=== PATIENT | female | born 1985 | race Caucasian/White ===

== ENCOUNTER 2020-10-26 21:22 | Inpatient (IN) | payer OTHER, SELFPAY ==
[2020-10-26 22:00] VITALS: BP 126/84; PULSE 120
--- NOTE | 2020-10-26 22:00 | LDADM ---
This patient, Siva Membreno, was admitted to Labor/Delivery/Recovery 108 on 10/26/20 at 21:22. Plans for labor, pain management and were discussed with patient. Patient/family oriented to hospital policies and general routines including ID bracelet, bed and alarms, visiting hours, pain management, procedures, bathroom and other care routines, personal items, smoking policy, room service/diet and guest tray routines, security routines, and visiting hours. Patient/Family are encouraged to report perceived risks to care and to ask questions if they do not understand what they are told or what they should do. See OBIX for further documentation.
[2020-10-26 22:15] VITALS: BP 108/62; PULSE 103
[2020-10-26 22:30] VITALS: BP 113/76; PULSE 102
[2020-10-26] MEDS: AMPICILLIN 2 GM/NS 100 ML 2 GM/100 ML BAG IVPB (22:32)
[2020-10-26] MEDS: LACTATED RINGERS 1,000 ML 125 ML IV CONT (22:32)
[2020-10-26 22:38] LABS: Basophils Percent Auto 0.2 % (0.2-1.2); Eosinophils Percent Auto 0.3 % (0-4.4); Hematocrit 40.6 % (37.0-47.0); Hemoglobin 13.6 g/dL (12.0-15.0); Immature Granulocyte Absolute 0.08 K/mm3 (0.00-0.031); Immature Granulocyte Percent A 0.6 % (0-0.5); Lymphocytes Absolute Auto 2.59 K/mm3 (0.9-3.2); Lymphocytes Percent Auto 18.4 % (18.3-44.2); Mean Corpuscular HGB Conc 33.5 g/dl (32-36); Mean Corpuscular Hemoglobin 30.4 pg (26-34); Mean Corpuscular Volume 90.8 fl (80-100); Mean Platelet Volume 11.9 fl (7.4-10.4); Monocytes Absolute Auto 0.6 K/mm3 (0.1-0.6); Monocytes Percent Auto 3.9 % (2.6-8.5); Neutrophils Absolute Auto 10.8 K/mm3 (1.3-6.7); Neutrophils Percent Auto 76.6 % (45.5-73.1); Platelet Count Result 224 k/mm3 (150-375); Red Blood Count 4.47 M/mm3 (4.2-5.4); Red Cell Distribution Width 13.2 % (11.5-14.5); White Blood Count 14.1 K/mm3 (4.5-10.0)
[2020-10-26 22:41] LABS: Glucose Point of Care 171 mg/dl (65-105)
[2020-10-26 22:45] VITALS: BP 117/80; PULSE 117
[2020-10-26 23:00] VITALS: BMI 38.7
[2020-10-26] MEDS: INSULIN HUMAN REGULAR (*BKC) 100 UNITS/ML SUB-Q (23:17)
[2020-10-26 23:20] VITALS: BP 135/83; PULSE 113
[2020-10-26 23:30] VITALS: TEMP 36.5
[2020-10-27] VITALS (80 sets, daily range): BP systolic 88–138; BP diastolic 49–97; PULSE 68–125; RESP 13–22; TEMP 35.9–37.1; O2SAT 96–100
[2020-10-27] MEDS: INSULIN HUMAN REGULAR (*BKC) 100 UNITS in SODIUM CHLORIDE 0.9% IV 99 ML IV CONT (00:32)
[2020-10-27 00:44] LABS: Glucose Point of Care 121 mg/dl (65-105)
[2020-10-27 01:42] LABS: Glucose Point of Care 115 mg/dl (65-105)
[2020-10-27] MEDS: AMPICILLIN 1 GM/NS 50 ML 1 GM/50 ML BAG IVPB ×3 (02:32→11:02)
[2020-10-27] MEDS: OXYTOCIN 30 UNITS/NS 500 ML 30 UNITS/500 ML BAG 6 UNITS IV CONT (02:32)
[2020-10-27 02:43] LABS: Glucose Point of Care 87 mg/dl (65-105)
[2020-10-27 04:21] LABS: Glucose Point of Care 88 mg/dl (65-105)
[2020-10-27 04:54] LABS: Glucose Point of Care 91 mg/dl (65-105)
[2020-10-27] MEDS: fentaNYL CITRATE INJ (*CRX) 100 MCG/2 ML VIAL IV PUSH (05:24)
[2020-10-27 06:12] LABS: Glucose Point of Care 103 mg/dl (65-105)
--- NOTE | 2020-10-27 06:18 | WPDANESEPPF ---
Anes - Initial Pre Proc Eval Procedure: labor epidural Date/Time: 10/27/20 06:18 Surgeon: Casandra Arevalo MD Pre Op Diagnosis: labor pain Pre Op Diagnosis: SROM Patient Data Age: 34 Gender: F Height: 1.63 m Weight: 102.5 kg Last Vital Signs Temp 36.4 C L 10/27/20 06:17 Pulse 82 10/27/20 06:15 Resp 20 10/27/20 06:17 BP 112/67 10/27/20 06:15 Pulse Ox 100 10/27/20 06:14 Allergies Allergy/AdvReac Type Severity Reaction Status Date / Time No Known Allergies Allergy Verified 10/18/20 12:37 Home Medications Medication Instructions Recorded Confirmed Type aspirin [Aspirin Low Dose] 81 mg PO DAILY 10/18/20 10/18/20 History ergocalciferol (vitamin D2) 1,250 mcg PO WEEKLY 10/18/20 10/18/20 History [Vitamin D2] ferrous sulfate 325 mg PO DAILY 10/18/20 10/18/20 History insulin NPH and regular human 28 unit SUBCUT HS 10/18/20 10/18/20 History [Humulin 70/30 U-100 Insulin] prenat.vits,rich,qzr-iqzr-kopwr 1 tablet PO DAILY 10/18/20 10/18/20 History [ #2] sertraline 250 mg PO DAILY 10/18/20 10/18/20 History Laboratory Tests 10/26/20 10/26/20 10/26/20 22:25 22:25 22:25 WBC 14.1 K/mm3 H K/mm3 (4.5-10.0) RBC 4.47 M/mm3 M/mm3 (4.2-5.4) Hgb 13.6 g/dL g/dL (12.0-15.0) Hct 40.6 % % (37.0-47.0) MCV 90.8 fl fl (80-100) MCH 30.4 pg pg (26-34) MCHC 33.5 g/dl g/dl (32-36) RDW 13.2 % % (11.5-14.5) Plt Count 224 k/mm3 k/mm3 (150-375) MPV 11.9 fl H fl (7.4-10.4) Immature Gran % (Auto) 0.6 % H % (0-0.5) Neut % (Auto) 76.6 % H % (45.5-73.1) Lymph % (Auto) 18.4 % % (18.3-44.2) [place] % (Auto) 3.9 % % (2.6-8.5) Eos % (Auto) 0.3 % % (0-4.4) Baso % (Auto) 0.2 % % (0.2-1.2) Lymph # (Auto) 2.59 K/mm3 K/mm3 (0.9-3.2) [place] # (Auto) 0.6 K/mm3 K/mm3 (0.1-0.6) Eos # (Auto) 0.0 K/mm3 K/mm3 (0-0.3) Baso # (Auto) 0.0 K/mm3 K/mm3 (0.0-0.1) Abs Immat Gran (auto) 0.08 K/mm3 H K/mm3 (0.00-0.031) Absolute Neuts (auto) 10.8 K/mm3 H K/mm3 (1.3-6.7) Absolute Nucleated RBC 0.0 K/mm3 K/mm3 (0.0-0.012) Nucleated RBC % 0.0 % % (0.0-0.2) POC Capillary Glucose RPR Pending Blood Type O Positive Antibody Screen Negative 10/26/20 10/27/20 10/27/20 22:37 00:31 01:38 WBC RBC Hgb Hct MCV MCH MCHC RDW Plt Count MPV Immature Gran % (Auto) Neut % (Auto) Lymph % (Auto) [place] % (Auto) Eos % (Auto) Baso % (Auto) Lymph # (Auto) [place] # (Auto) Eos # (Auto) Baso # (Auto) Abs Immat Gran (auto) Absolute Neuts (auto) Absolute Nucleated RBC Nucleated RBC % POC Capillary Glucose 171 mg/dl H mg/dl 121 mg/dl H mg/dl 115 mg/dl H mg/dl (65-105) (65-105) (65-105) RPR Blood Type Antibody Screen 10/27/20 10/27/20 10/27/20 02:30 03:56 04:48 WBC RBC Hgb Hct MCV MCH MCHC RDW Plt Count MPV Immature Gran % (Auto) Neut % (Auto) Lymph % (Auto) [place] % (Auto) Eos % (Auto) Baso % (Auto) Lymph # (Auto) [place] # (Auto) Eos # (Auto) Baso # (Auto) Abs Immat Gran (auto) Absolute Neuts (auto) Absolute Nucleated RBC Nucleated RBC % POC Capillary Glucose 87 mg/dl mg/dl 88 mg/dl mg/dl 91 mg
[2020-10-27 07:13] LABS: Glucose Point of Care 109 mg/dl (65-105)
[2020-10-27 08:18] LABS: Glucose Point of Care 108 mg/dl (65-105)
[2020-10-27 09:12] LABS: Glucose Point of Care 120 mg/dl (65-105)
[2020-10-27 10:11] LABS: Glucose Point of Care 105 mg/dl (65-105)
[2020-10-27 11:19] LABS: Glucose Point of Care 111 mg/dl (65-105)
[2020-10-27 12:02] LABS: Glucose Point of Care 106 mg/dl (65-105)
--- NOTE | 2020-10-27 15:30 | PC.NURSE ---
Insulin gtt discontinued at this time.
--- NOTE | 2020-10-27 15:35 | P.PCNOB_ITS ---
OB - Delivery Note Procedure Delivery date: 10/27/20 Procedure: events: Labor < 37 Weeks, Gestational Diabetes and Labor Augmentation Delivery augmentation: pitocin Delivery monitor: external FHT and external uterine Route of delivery: Laceration Description: Perineal - 2nd Degree Delivery repair: vicryl Specimen: Yes Quantitative Blood Loss (ml): 774 Anesthesia type: Epidural Disposition: floor Complications: vaginal tear bleeding prior to delivery [place] Baby Date of : 10/27/20 Time of : 15:05 Weeks of gestation at delivery: 36 Infant gender: Male Weight (pounds): 7 Weight (ounces): 0 presentation: vertex position: Left Occiput Anterior Placenta delivery description: Spontaneous cord vessel description: 3 Vessels, Nuchal Cord, Loose and Clamped/Cut score one minute: 7 score five minutes: 9
[2020-10-27 15:41] LABS: Glucose Point of Care 102 mg/dl (65-105)
[2020-10-27 15:41] LABS: Glucose Point of Care 116 mg/dl (65-105)
[2020-10-27] MEDS: OXYTOCIN 30 UNITS/NS 500 ML 30 UNITS/500 ML BAG 125 UNITS IV CONT (15:45)
[2020-10-27] MEDS: IBUPROFEN 600 MG TABLET PO (18:23)
[2020-10-28] MEDS: IBUPROFEN 600 MG TABLET PO ×4 (00:23→20:20)
[2020-10-28 03:30] VITALS: BP 108/61; PULSE 87; RESP 14; TEMP 36.3; O2SAT 100
[2020-10-28 05:39] LABS: Hematocrit 31.6 % (37.0-47.0); Hemoglobin 10.2 g/dL (12.0-15.0)
[2020-10-28 07:00] VITALS: BP 101/62; PULSE 80; RESP 18; TEMP 36.6; O2SAT 97
[2020-10-28] MEDS: WITCH HAZEL 40 PADS 1 PAD TOPICAL (08:07)
[2020-10-28] MEDS: DOCUSATE SODIUM 100 MG CAPSULE PO ×2 (08:07→20:20)
[2020-10-28] MEDS: LANOLIN (LANSINOH) 7.5 GM CREAM 1 APPLIC TOPICAL (08:08)
[2020-10-28 09:29] LABS: Rapid Plasma Reagin Non-Reactive (NonReactive)
--- NOTE | 2020-10-28 09:45 | WPDANLDPN2 ---
Anes-Prog Note L&D Date/Time: 10/28/20 09:45 Comfortable throughout: labor and delivery Neuraxial method: epidural Epidural/Spinal procedure site: clean & non-tender Neuro status: Neuro function grossly intact. Cardiovascular status: normal Respiratory status: normal Airway patency: baseline Mental status: baseline Post-Op hydration status: normal Vital Signs: Last Vital Signs Temp 36.3 C L 10/28/20 03:30 Pulse 87 10/28/20 03:30 Resp 14 10/28/20 03:30 BP 108/61 10/28/20 03:30 Pulse Ox 100 10/28/20 03:30 Pain score (VAS): 0 I/O: Intake & Output 10/27/20 10/28/20 10/28/20 23:59 07:59 15:59 Output Total 190 Balance -190 Post-procedural complaints: none Patient feedback: Patient satisfied with anesthetic care.
--- NOTE | 2020-10-28 10:50 | PC.NURSE ---
Mother called out for assist with feeding reporting has been sleepy and difficult to latch and maintain. Discussed the early with needing to wake for each feeding, possible low tone, sleepiness while feeding. Infant is able to freely thrust tongue past gum ridge and flange both lips. Skin is intact on both nipples, no redness and bruising noted. Reviewed feeding cues, frequencies, duration of feedings, feeding elimination flow sheet, and signs of adequate intake. Demonstrated stimulation techniques to wake for feeding. Assisted with to breast. Reviewed positioning/alignment in cross cradle, holding breast in ?U? hold and guided asymmetrical latch on. Discussed rational for each. able to latch correctly within a few attempts. nursed eagerly with a burst of steady draws then quickly pausing and falling asleep. Suggested mother stimulate while feeding to increase stimulation, increase intake and to assist with maintaining deep latch. made one more short burst of suckling in 15 minutes attempt. Discussed feeding options at this time. Suggested mother initiate pumping to stimulate milk supply and offer any EBM to infant as part of supplement. Infant to be supplemented 20 mls of EBM/formula after each attempt in not effectively feeding. Parents are agreement of feeding plan.
--- NOTE | 2020-10-28 11:10 | PC.NURSE ---
Breast pump provided due to ineffective feeding. Instructions given on breast pump care and usage, pumping schedule, nipple care, and collection and storage of breast milk. Encouraged [id number], breast massage and manual expression to stimulate supply. Assessed patient for correct flange size, placement and draw. Patient verbalizes and demonstrates understanding of instructions.
[2020-10-28 12:05] VITALS: BP 118/65; PULSE 81; RESP 18; TEMP 36.5; O2SAT 100
--- NOTE | 2020-10-28 17:03 | PHAR ---
THE FOLLOWING HOME MEDS HAVE BEEN VERIFIED BY PHARMACY: --SERTRALINE 100 MG TABS--2 DIFFERENT LOOKING TABS IN PT'S BOTTLE BOTH IDENTIFIED SERTRALINE 100 MG. --METHYLPREDNISOLONE 4 MG DOSEPAK --DIPHENHYDRAMINE 25 MG TABS -- VITAMIN SOFTGEL--NOT ABLE TO BE IDENTIFIED DUE TO LACK OF UNIDENTIFIABLE MARKINGS
[2020-10-28 20:30] VITALS: BP 121/67; PULSE 98; RESP 18; TEMP 36.8; O2SAT 100
[2020-10-28] MEDS: methylPREDNISolone (MEDROL) DOSEPACK 4 MG TABLETS PO (21:40)
[2020-10-29] MEDS: IBUPROFEN 600 MG TABLET PO ×3 (02:26→16:22)
[2020-10-29 08:30] VITALS: BP 114/71; PULSE 72; RESP 16; TEMP 36.4; O2SAT 99
[2020-10-29] MEDS: DOCUSATE SODIUM 100 MG CAPSULE PO (09:02)
--- NOTE | 2020-10-29 11:00 | PC.NURSE ---
Mother is able to independently latch with appropriate positioning/alignment. She denies any nipple discomfort, is feeding as required and waking infant to feed if needed. Infant has had several effective feedings followed with supplementation in the past 24 hours, and is currently meeting outcomes for weight, output, jaundice and feeding frequencies. is more awake and eager to feed today. Mother continues to pump without difficulties or discomfort after all feedings due to ineffective feeding. Mother states she feels confident to continue current feeding plan at home. Discussed infant may want to increase supplementation, advised to increase to amount infant desires, with increased supplement infant may not want to feed for 4 hours. Mother will continue to pump on feeding schedule and will increase session to 20 minutes if pumping every 4 hours. Reviewed signs may be ready to decrease/discontinue supplementation. Advised not to discontinue supplement until ICP, follow up or LC has a pre/post weighted evaluation of feeding Reviewed transition to breast milk, signs of adequate intake, and engorgement/relief. Instructed to call ICP if intake/output less than required. Reviewed regular medications mother is taking. Information provided per Jamia. Reviewed community resources on the [facility] website and in the Mom/Baby guide. Information on outpatient services provided. Mother has no further questions at this time.
--- NOTE | 2020-10-29 12:02 | P.PNOB_ITS ---
OB - PN: Subj Subjective Date/time seen: 10/29/20 12:02 doing well no complaints OB - PN: Obj Data Labs CBC & Chem 7: 10/28/20 03:39 OB - PN A/P Assessment and Plan (1) (normal spontaneous vaginal delivery): Code(s): O80 - Encounter for full-term uncomplicated delivery Status: Acute Assessment and Plan: continue with pp care. Time Spent With Patient Time: Total time spent is greater than 50% in coordination of care (as kelli smith) at patient's floor/unit and/or counseling patient: Exam Narrative: ff below umbilicus
--- NOTE | 2020-10-29 19:20 | PC.NURSE ---
1600 Pt and her were given pt's and baby's discharge papers including feeding plan for baby, and asked to read through them. They stated they did read them; mother signed discharge papers in understanding.
[2020-10-30 10:38] VITALS: BP 121/73; PULSE 96; RESP 20; TEMP 36.5; O2SAT 100
--- NOTE | 2021-01-03 12:08 | PM.OBDSVD ---
DS: Admitting Diagnosis Discharge Date 10/29/20 Admitting Diagnosis labor rupture membranes OB - DS: Summary OB Procedures : None OB Procedures Intrapartum: Spontaneous Vag Delivery OB Procedures: : None Time Spent with Patient Time attestation: Total time spent providing and/or coordinating discharge services: DS: Data Data Completed and Pending Completed studies during hospitalization: Pending at discharge 10/27/20 15:10 Surgical [PTH] Routine Discharge Plan Discharge Attending physician on discharge: Ian Vazquez Consulting providers: Jose Zapata Discharging Clinician: Ian Vazquez Patient Disposition: Home, Self-Care Activity: may shower and may drive after 2 weeks Diet: regular Discharge Instructions: Education: Mom and Baby Guide Given to: Mother Follow-Up: Call your delivering provider's office for an appointment to be seen in: as directed by physician Mom and baby should come to the [facility] for the follow-up appointment. Appointment Date/Time: October 30, 2020 at 10:00 am What to expect at your follow-up visit: Blood Pressure Check Physical Assessment Call [phone] if you are unable to keep your appointment time. BREAST CARE: * Wear a snug supportive bra. * For engorgement discomfort: Breast Feeding: * Apply warm moist washcloths * Express milk as needed to relieve engorgement * Wear loose clothing Bottle Feeding: * May apply ice packs * For sore nipples: * Identify correct latch-on * Apply warm moist washcloths before and after nursing * Air dry nipples after nursing * May apply Lansinoh cream to nipples EPISIOTOMY/PERINEAL CARE: * Until bleeding stops, use your meghna bottle after urinating * Change your pad frequently throughout the day * You may take sitz baths several times a day (fill your bathtub with warm water and soak for 20 minutes.) Do NOT bathe in the water * No tub baths until seen by your physician - You may shower ACTIVITY: * Rest as much as possible. * Do not exercise or lift anything heavier than your baby (such as laundry or other children.) * Avoid stairs or driving as much as possible. * Do not put anything into the vagina. No douching, tampons, or sexual activity until seen by physician. NOTIFY PHYSICIAN IF YOU HAVE ANY QUESTIONS OR IF ANY OF THE FOLLOWING SYMPTOMS OCCUR: * If your perineum becomes red, swollen, or more painful than what you have experienced in the hospital. * If your vaginal bleeding becomes foul smelling. * If your vaginal bleeding becomes more heavy than a period or if your bleeding changes from pink to bright red. However, you may pass an occasional walnut-sized clot once or twice for the first week . * If you experience a sharp, shooting pain in you calves. * If you discover a hard, reddened area on your breast or if you experience flu-like symptoms. *Temperature of 100.4 DIET: * Eat regular, well-balanced meals. * Drink plenty of fluids daily. If , drink to thirst. Stand Alone Forms: General Discharge Information Follow-up/Referrals: Ian Vazquez MD [Physician] - Discharge Medications: New ibuprofen 600 mg Tablet 600 mg PO Q6H PRN (Reason: Cramping) RF: 0 methylprednisolone 4 mg Tablets,Dose Pack 4 mg PO 1700,2100 RF: 0 Continued ergocalciferol (vitamin D2) [Vitamin D2] 1,250 mcg (50,000 unit) Capsule 1,250 mcg PO WEEKLY RF: 0 prenat.vits,rich,[id number]-jdtjr Tablet 1 tablet PO DAILY RF: 0 sertraline 250 mg PO DAILY RF: 0 Discontinued Humulin 70/30 U-100 Insulin 100 unit/mL (70-30) Suspension 28 unit SUBCUT HS RF: 0 aspirin [Aspirin Low Dose] 81 mg Tablet,Delayed Release (Dr/Ec) 81 mg PO DAILY RF: 0 ferrous sulfate 325 mg (65 mg iron) Tablet 325 mg PO DAILY RF: 0 Date of
== END 2020-10-29 16:24 | disposition home or self-care (01) | DRG 807 ==
LOC: ANHLDR 10-27 15:39 → ANHOB2 10-29 13:21 → ANHLDR 11-01 13:52 → ANHOB2 11-01 13:52
PROVIDERS: Obstetrics & Gynecology Gynecology; Admitting Provider Obstetrics & Gynecology; Visit Provider Obstetrics & Gynecology
DX: O24.429 Gestational diabetes mellitus in childbirth, unspecified control (principal); Z37.0 Single live birth; O69.81X0 Labor and delivery complicated by cord around neck, without compression, not applicable or unspecified; O76 Abnormality in fetal heart rate and rhythm complicating labor and delivery; O70.1 Second degree perineal laceration during delivery; Z3A.36 36 weeks gestation of pregnancy
CPT/HCPCS: 36415; 82948; 84112; 85014; 85018; 85025; 86592; 86850; 86900; 86901; 88307; A9270; J0290; J1815; J2590; J2795; J3010; J7120

== ENCOUNTER → 2021-12-30 10:02 | Outpatient (CLI) | payer OTHER, SELFPAY ==
--- NOTE | ~2021-12-30 | US_ITS ---
EXAMINATION: US OB <= 14 weeks fetus DATE: 12/30/2021 10:30 INDICATION: History of miscarriage. Gestational dating. TECHNIQUE: Real-time transabdominal obstetric ultrasound. FINDINGS: No prior studies for comparison. The uterus measures 13.3 x 4.7 x 6.9 cm. There is an intrauterine gestational sac, with pole id entified. The crown rump length measures 1.57 cm, which correlates with a estimated gestational age of 8 weeks 0 days. heart tones are identified measuring 169 bpm. Subchorionic hemorrhage nadir uring 8 x 7 x 7 mm. The ovaries are unremarkable. IMPRESSION: 1. SL IUP with an EGA of 8 weeks, 0 days (EDC by current ultrasound of 08/11/2022). 2: Small subchorionic hemorrhage. Reviewed, dictated and finalized at location A. IMPRESSION: 1. SL IUP with an EGA of 8 weeks, 0 days (EDC by current ultrasound of 3). 2: Small subchorionic hemorrhage.
== END ==
PROVIDERS: PCP Obstetrics & Gynecology Gynecology; Visit Provider Obstetrics & Gynecology Gynecology
DX: O46.91 Antepartum hemorrhage, unspecified, first trimester (principal); Z3A.08 8 weeks gestation of pregnancy
CPT/HCPCS: 76801

== ENCOUNTER → 2022-01-31 11:42 | Outpatient (CLI) | payer OTHER, SELFPAY ==
--- NOTE | ~2022-01-31 | US_ITS ---
EXAMINATION: US OB <= 14 weeks fetus DATE: 01/31/2022 12:05 INDICATION: Subchorionic hematoma follow-up during first trimester TECHNIQUE: Real-time pelvic transabdominal and transvaginal ultrasound was performed. COMPARISON: 12/30/2021 FINDINGS: The uterus measures 14.7 x 6.4 x 9.5 cm. There is an intrauterine gestational sac. A small hypoechoic area is seen adjacent to the gestational sac which has decreased in size. heart mot ion is identified measuring 155 beats per minute (bpm) by M-mode Doppler. The crown rump length measures 7.2 cm, which correlates with an estimated gestational age of 13 weeks and 3 day(s) (+/-) 8 day(s). The right ovary measures 3.0 x 2.5 x 2.5 cm. The left ovary measures 3.6 x 1.9 x 3.6 cm. There is nor mal vascular flow in the ovaries. There is no free fluid in the pelvis. IMPRESSION: 1. Live intrauterine with an estimated gestational age of 13 weeks and 3 day(s) (+/-) 8 day (s) and an estimated delivery date of 08/05/2022. 2. Small subchorionic hematoma with decrease in size. Reviewed, dictated and finalized at location B. [employer] IMPRESSION: 1. Live intrauterine with an estimated gestational age of 13 weeks an d 3 day(s) (+/-) 8 day(s) and an estimated delivery date of 08/05/2022. 2. Small subchorionic hematoma with decrease in size.
== END ==
PROVIDERS: PCP Obstetrics & Gynecology Gynecology; Visit Provider Obstetrics & Gynecology Gynecology
DX: O46.90 Antepartum hemorrhage, unspecified, unspecified trimester (principal); Z3A.13 13 weeks gestation of pregnancy
CPT/HCPCS: 76801

== ENCOUNTER 2022-06-29 11:49 | Outpatient (CLI) | payer OTHER, SELFPAY ==
--- NOTE | ~2022-06-29 | US_ITS ---
EXAMINATION: 1. US OB follow up 2. US OB velocimetry umbilcal art DATE: 06/29/2022 12:36 INDICATION: Preeclampsia. Third trimester. TECHNIQUE: Real-time ultrasound of the pelvis was performed. COMPARISON: Ultrasound 01/31/2022, 12/30/21 FINDINGS: There is a single living fetus in vertex presentation. The placenta is anterior, greater than 5 cm f rom the cervix. heart rate is 135 beats per minute (bpm). The amniotic fluid index is 11.5 cm, which is normal. The following biometric data were obtained: Biparietal diameter (BPD): 9.2 cm; head circumference (HC): 33.6 cm; abdominal circumference (AC): 32 .7 cm; femur length (FL): 6.2 cm. These measurements are discordant with low FL/BPD and FL/AC. Estimated weight is 2746 g +/- 412 g, which correlates with the 91st percentile when 07/27/22 is used as estimated date of delivery. As single measurements, these parameters are each equal to the following estimated gestational ages: BPD: 37 weeks 1 days. HC: 38 weeks 3 days. AC: 36 weeks 4 days. FL: 32 weeks 0 days. estimated gestational age based solely on measurements from this exam is 36 weeks 0 days +/- 2 weeks 4 days. Umbilical artery pulsed Doppler demonstrates a peak systolic to end-diastolic velocity ratio (S/D rat io) of 2.3. IMPRESSION: 1. Single living fetus in vertex presentation. 2. Large for gestational age. Estimated weight is 2746 g +/- 412 g, which correlates with the 91st percentile when 07/27/22 is used as estimated date of delivery. Note that estimated date of delive ry based on the ultrasound from 12/30/21 would be 08/11/2022. 3. Discordant biometrics with low FL/BPD and FL/AC. 4. Normal umbilical artery Doppler. Reviewed, dictated and finalized at location A. IMPRESSION: 1. Single living fetus in vertex presentation. 2. Large for gestational age. Estimated weight is 2746 g +/- 412 g, whic h correlates with the 91st percentile when 07/27/22 is used as estimated date of delivery. Note that estimated date of delivery based on the ultrasound from 12/30/21 would be 08/11/2022. 3. Discordant biometrics with low FL/BPD and FL/AC. 4. Normal umbilical artery Doppler.
== END 2022-06-29 11:50 ==
PROVIDERS: PCP Obstetrics & Gynecology Gynecology; Visit Provider Obstetrics & Gynecology Gynecology
DX: O14.13 Severe pre-eclampsia, third trimester (principal); O36.63X0 Maternal care for excessive fetal growth, third trimester, not applicable or unspecified; Z3A.36 36 weeks gestation of pregnancy
CPT/HCPCS: 76816; 76820

== ENCOUNTER 2022-07-06 15:32 | Outpatient (RCR) | payer OTHER, SELFPAY ==
[2022-07-06 16:33] VITALS: BP 120/69
== END 2022-10-04 23:59 | disposition home or self-care (01) ==
LOC: ANHOBOP 15:32
PROVIDERS: Visit Provider Obstetrics & Gynecology Gynecology
DX: O14.93 Unspecified pre-eclampsia, third trimester (principal); Z3A.34 34 weeks gestation of pregnancy
CPT/HCPCS: 59025

== ENCOUNTER 2022-07-24 05:19 | Inpatient (IN) | payer OTHER, SELFPAY ==
[2022-07-24] VITALS (97 sets, daily range): BP systolic 114–193; BP diastolic 57–143; PULSE 71–140; TEMP 36.4–37.1; O2SAT 95–100
[2022-07-24] MEDS: AMPICILLIN 2 GM/NS 100 ML 2 GM/100 ML BAG IVPB (05:40)
[2022-07-24] MEDS: LACTATED RINGERS 1,000 ML 125 ML IV CONT ×3 (05:40→17:28)
[2022-07-24] MEDS: OXYTOCIN 30 UNITS/NS 500 ML 30 UNITS/500 ML BAG IV CONT (06:00)
[2022-07-24 06:04] LABS: Basophils Percent Auto 0.3 % (0.2-1.2); Eosinophils Absolute Auto 0.1 K/mm3 (0-0.3); Eosinophils Percent Auto 0.4 % (0-4.4); Hematocrit 40.2 % (37.0-47.0); Hemoglobin 13.5 g/dL (12.0-15.0); Immature Granulocyte Absolute 0.12 K/mm3 (0.00-0.031); Lymphocytes Absolute Auto 2.76 K/mm3 (0.9-3.2); Lymphocytes Percent Auto 23.1 % (18.3-44.2); Mean Corpuscular HGB Conc 33.6 g/dl (32-36); Mean Corpuscular Hemoglobin 30.5 pg (26-34); Mean Platelet Volume 12.3 fl (7.4-10.4); Monocytes Absolute Auto 0.7 K/mm3 (0.1-0.6); Monocytes Percent Auto 6.1 % (2.6-8.5); Neutrophils Absolute Auto 8.3 K/mm3 (1.3-6.7); Neutrophils Percent Auto 69.1 % (45.5-73.1); Platelet Count Result 160 k/mm3 (150-375); Red Blood Count 4.42 M/mm3 (4.2-5.4); Red Cell Distribution Width 14.2 % (11.5-14.5); White Blood Count 11.9 K/mm3 (4.5-10.0)
[2022-07-24 06:14] LABS: Alanine Aminotransferase 48 U/L (6-35); Albumin Level 3.8 g/dL (3.5-5.1); Alkaline Phosphatase 133 U/L (38-126); Anion Gap 12 mmol/L (8-16); Aspartate Amino Transferase 24 U/L (14-36); Bilirubin,Total 0.5 mg/dL (0.2-1.3); Blood Urea Nitrogen 9 mg/dL (7-17); Carbon Dioxide 17 mmol/L (22-30); Chloride 104 mmol/L (98-107); Estimated Glomerular Filt Rate > 60; Glucose 154 mg/dL (65-110); Potassium 3.8 mmol/L (3.4-5.0); Sodium 133 mmol/L (137-145)
--- NOTE | 2022-07-24 06:32 | LDADM ---
This patient, Siva Membreno, was admitted to Labor/Delivery/Recovery 106 on 07/24/22 at 05:19. Plans for labor, pain management and were discussed with patient. Patient/family oriented to hospital policies and general routines including ID bracelet, bed and alarms, visiting hours, pain management, procedures, bathroom and other care routines, personal items, smoking policy, room service/diet and guest tray routines, security routines, and visiting hours. Patient/Family are encouraged to report perceived risks to care and to ask questions if they do not understand what they are told or what they should do. See OBIX for further documentation.
--- NOTE | 2022-07-24 06:59 | WPDOBADMIT ---
Obstetrics - Admit Note Admission Note: record reviewed. No pertinent additions to the history and/or any subsequent changes in the physical findings that are not consistent with the expected course of the were found. Additions to the history and/or subsequent changes in the physical findings follow. None.
[2022-07-24] MEDS: AMPICILLIN 1 GM/NS 50 ML 1 GM/50 ML BAG IVPB ×3 (09:26→18:08)
--- NOTE | 2022-07-24 10:52 | WPDANESEPPF ---
Anes - Initial Pre Proc Eval Date/Time: 07/24/22 10:52 Surgeon: Casandra Arevalo MD Pre Op Diagnosis: IOL Patient Data Age: 36 Gender: F Height: Weight: Last Vital Signs Temp 36.7 C 07/24/22 08:39 Pulse 82 07/24/22 10:46 BP 176/97 H 07/24/22 10:46 Pulse Ox 96 07/24/22 10:50 Allergies Allergy/AdvReac Type Severity Reaction Status Date / Time No Known Allergies Allergy Verified 10/18/20 12:37 Home Medications Medication Instructions Recorded Confirmed Type ergocalciferol (vitamin D2) 1,250 1,250 mcg PO WEEKLY 10/18/20 07/24/22 History mcg (50,000 unit) capsule (Vitamin D2) prenat.vits,rich,lav-rpvy-mbfnq 1 tablet PO DAILY 10/18/20 07/24/22 History sertraline 250 mg PO DAILY 10/18/20 07/24/22 History aspirin 81 mg tablet 81 mg PO DAILY 07/13/22 07/24/22 History cetirizine 10 mg tablet (Zyrtec) 10 mg PO DAILY 07/13/22 07/24/22 History Laboratory Tests 07/24/22 05:52 WBC 11.9 H K/mm3 (4.5-10.0) RBC 4.42 M/mm3 (4.2-5.4) Hgb 13.5 D g/dL (12.0-15.0) Hct 40.2 % (37.0-47.0) MCV 91.0 fl (80-100) MCH 30.5 pg (26-34) MCHC 33.6 g/dl (32-36) RDW 14.2 % (11.5-14.5) Plt Count 160 k/mm3 (150-375) MPV 12.3 H fl (7.4-10.4) Immature Gran % (Auto) 1.0 H % (0-0.5) Neut % (Auto) 69.1 % (45.5-73.1) Lymph % (Auto) 23.1 % (18.3-44.2) [place] % (Auto) 6.1 % (2.6-8.5) Eos % (Auto) 0.4 % (0-4.4) Baso % (Auto) 0.3 % (0.2-1.2) Lymph # (Auto) 2.76 K/mm3 (0.9-3.2) [place] # (Auto) 0.7 H K/mm3 (0.1-0.6) Eos # (Auto) 0.1 K/mm3 (0-0.3) Baso # (Auto) 0.0 K/mm3 (0.0-0.1) Abs Immat Gran (auto) 0.12 H K/mm3 (0.00-0.031) Absolute Neuts (auto) 8.3 H K/mm3 (1.3-6.7) Absolute Nucleated RBC 0.0 K/mm3 (0.0-0.012) Nucleated RBC % 0.0 % (0.0-0.2) Sodium 133 L mmol/L (137-145) Potassium 3.8 mmol/L (3.4-5.0) Chloride 104 mmol/L (98-107) Carbon Dioxide 17 L mmol/L (22-30) Anion Gap 12 mmol/L (8-16) BUN 9 mg/dL (7-17) Creatinine 0.50 L mg/dL (0.7-1.0) Estim Creat Clear Calc Not Reportable Estimated GFR > 60 (59 - ) Glucose 154 H mg/dL (65-110) Calcium 9.0 mg/dL (8.4-10.2) Total Bilirubin 0.5 mg/dL (0.2-1.3) AST 24 U/L (14-36) ALT 48 H U/L (6-35) Alkaline Phosphatase 133 H U/L (38-126) Total Protein 7.0 g/dL (6.3-8.2) Albumin 3.8 g/dL (3.5-5.1) RPR Pending Blood Type O Positive Antibody Screen Negative Patient hx anesthesia problems: none Family hx anesthesia problems: none Results Review: All pre-operative results and documents have been reviewed as part of the pre-operative evaluation. [facility] Past Medical History Medical History (Updated 10/29/20 @ 12:03 by Ian Vazquez MD) (normal spontaneous vaginal delivery) Family History Family History Mother Breast cancer Father Neuropathy Hypertension Anemia Sibling Peanut allergy Asthma Grandparent Cataract Acute myocardial infarction Social History Social History Smoking status: Never smoker Second hand tobacco smoke exposure: No Substance use: never Lack of Transportation: No Lack of Food: Never True Current Housing: I Have Housing Concerned About Future Housing: No Difficulty Paying Gas/Electric Bills: No Difficulty Paying for Meds: No Currently Unemployed: No Education: High School Diploma/GED Difficulty w/ Childcare or Family Care: No Spiritual care concerns: No Anes - Eval Final PreProcedure Day of Procedure 07/24/22 10:52 Patient weight: obese Heart: regular rate and rhythm Lungs: clear to auscultation and normal air movement Airway: Mallampati scale class II Neurological: alert and oriented Last oral intake: >/= 8 hours ASA classification: III Emergent: no Anesthetic
--- NOTE | 2022-07-24 12:12 | PM.OBPNLAB ---
Pain Control Date/time seen: 07/24/22 12:05 Pain control: tolerating well and epidural Pelvic Exam Dilation (cm): 5 Effacement (%): 70 station: -2 Amniotic membrane status: Intact Comments: Cervix very anterior. head well applied. Contractions Monitor mode: External Contraction frequency: 3 Contraction pattern: Regular Contraction phase: Contraction Contraction intensity: Moderate Status status: Category l Assessment and Plan Assessment: induction ongoing Plan: continuous present management Comments: CNM to bedside. Discussed plan of care an option for amniotomy. Discussed risks, benefits, and expectations of breaking water. Patient is agreeable. Amniotomy performed and there was a moderate return of meconium stained amniotic fluid. Patient tolerated procedure well. Due to anterior position of cerivx, recommend frequent repositioning. Anticipate vaginal . Dr. Arevalo updated.
[2022-07-24 12:18] LABS: Mean Platelet Volume 12.8 fl (7.4-10.4); Platelet Count Result 156 k/mm3 (150-375)
[2022-07-24 12:28] LABS: Alanine Aminotransferase 15 U/L (6-35); Albumin Level 3.5 g/dL (3.5-5.1); Alkaline Phosphatase 127 U/L (38-126); Anion Gap 9 mmol/L (8-16); Aspartate Amino Transferase 20 U/L (14-36); Bilirubin,Total 0.4 mg/dL (0.2-1.3); Blood Urea Nitrogen 10 mg/dL (7-17); Calcium 8.7 mg/dL (8.4-10.2); Carbon Dioxide 20 mmol/L (22-30); Chloride 103 mmol/L (98-107); Estimated Glomerular Filt Rate > 60; Glucose 105 mg/dL (65-110); Potassium 3.9 mmol/L (3.4-5.0); Sodium 132 mmol/L (137-145); Uric Acid 5.2 mg/dL (2.5-7.5)
--- NOTE | 2022-07-24 17:21 | P.PCNOB_ITS ---
OB - Delivery Note Procedure Delivery date: 07/24/22 Procedure: Events: Positive Group B Strep (GBS), Preeclampsia w/o severe features and Other (covid infection in , PUPPS rash, AMA) Induction method: Per Pitocin Protocol Delivery augmentation: Rupture of Membranes Delivery monitor: External FHT and External Uterine Route of delivery: Episiotomy description: None Laceration Description: Perineal - 2nd Degree Delivery repair: vicryl Specimen: Yes Quantitative Blood Loss (ml): 400 Anesthesia type: Epidural Disposition: Floor Narrative: Patient arrived for induction of labor secondary to preeclampsia. She made change to complete dilation and began pushing with contractions. After the delivery of the head there was excellent restitution. A double nuchal cord was identified. The anterior and posterior shoulders delivered easily followed by the remainder of the . Nuchal cord was then reduced and i nfant was placed on the maternal abdomen and care was transferred to the nursery staff. After 1 minute of life the cord was doubly clamped and cut. Cord blood, cord gases, and cord segment were obtained. All delivery counts correct and there was excellent hemostasis. Mother and baby skin to skin in the delivery room. weight not available at the time of this note. Baby Date of : 07/24/22 Time of : 18:16 Weeks of gestation at delivery: 37 gender: Male presentation: vertex position: Right Occiput Anterior Placenta delivery description: Spontaneous Cord Vessel Description: 3 Vessels, Nuchal Cord (x 2), Clamped/Cut and Delayed Cord Clamping score one minute: 8 score five minutes: 9
--- NOTE | 2022-07-24 17:22 | PM.OBDSVD ---
DS: Admitting Diagnosis Discharge Date 07/26/2022 Admitting Diagnosis 36 y.o. at 37 weeks 3 days Preeclampsia Hx Covid infection during PUPPS rash during DS: Discharge Diagnosis Discharge Diagnosis (1) (normal spontaneous vaginal delivery): Code(s): O80 - Encounter for full-term uncomplicated delivery Status: Acute (2) Mother currently breast-feeding: Code(s): Z39.1 - Encounter for care and examination of lactating mother Status: Acute OB - DS: Summary Hospital Course Hospital Course: Uncomplicated OB Procedures : NST and Ultrasound OB Procedures Intrapartum: Spontaneous Vag Delivery and GBS prophylaxis OB Procedures: : None Peripartum Data Infant Delivery Method: Natural Vaginal Laceration Description: Perineal - 2nd Degree Episiotomy description: None complications: none Status at Discharge Overall status at discharge: patient is progressing back to baseline Time Spent with Patient Time attestation: Total time spent providing and/or coordinating discharge services: Exam Narrative: Alert and oriented. Mood is pleasant and cooperative. Urinating without difficulty. Denies passing any large clots. Perineum with minimal edema. Fundus firm and below umbilicus. Const: General: cooperative, healthy appearing, no acute distress and alert Orientation/consciousness: patient oriented x3 Limitations: no limitations Resp: Effort & Inspection: normal respiratory effort Auscultation: clear to auscultation bilaterally Cardio: Rate: regular rate GI: Inspection: normal to inspection Neuro: General: patient oriented x3 Extrem: General: normal to inspection Psych: Appearance: grossly normal Mental Status: mental status grossly normal Affect: normal affect Thought process: Normal thought process present DS: Data Data Completed and Pending Labs on day of discharge: Labs from last 24 hours 07/24/22 07/24/22 11:49 05:52 WBC 11.9 H RBC 4.42 Hgb 13.5 D Hct 40.2 MCV 91.0 MCH 30.5 MCHC 33.6 RDW 14.2 Plt Count 156 160 MPV 12.8 H 12.3 H Immature Gran % (Auto) 1.0 H Neut % (Auto) 69.1 Lymph % (Auto) 23.1 [place] % (Auto) 6.1 Eos % (Auto) 0.4 Baso % (Auto) 0.3 Lymph # (Auto) 2.76 [place] # (Auto) 0.7 H Eos # (Auto) 0.1 Baso # (Auto) 0.0 Abs Immat Gran (auto) 0.12 H Absolute Neuts (auto) 8.3 H Absolute Nucleated RBC 0.0 Nucleated RBC % 0.0 Sodium 132 L 133 L Potassium 3.9 3.8 Chloride 103 104 Carbon Dioxide 20 L 17 L Anion Gap 9 12 BUN 10 9 Creatinine 0.50 L 0.50 L Estim Creat Clear Calc Not Reportable Not Reportable Estimated GFR > 60 > 60 Glucose 105 154 H Uric Acid 5.2 Calcium 8.7 9.0 Total Bilirubin 0.4 0.5 AST 20 24 ALT 15 48 H Alkaline Phosphatase 127 H 133 H Total Protein 6.0 L 7.0 Albumin 3.5 3.8 RPR Pending Blood Type O Positive Antibody Screen Negative Discharge Plan Discharge Attending physician on discharge: Casandra Arevalo Discharging Clinician: Arabella Daniel Anticipated Discharge Date/Time: 07/26/22 08:16 Patient Disposition: Home, Self-Care Activity: may shower Diet: as tolerated and regular Discharge Instructions: Continue taking your vitamin and any other supplements as previously directed (Examples: Iron, Vitamin D). You may take Tylenol 1000mg over the counter every 6 hours as needed for pain. Do not exceed 4000mg of Tylenol daily. You may continue using tucks pads and dermoplast spray if needed for a few more days. Check Blood Pressure 2x day. Call provider for any readings over 160 systolic (top number) or 110 diastolic (bottom number). Blood pressure check in the office (call for appointment) in one week. Notify provider for consistent BPs lower than 100/60 or for persistent dizziness. Patient Instructions: Antibiotic Form Stand Alone Forms: General Dis
[2022-07-24] MEDS: miSOPROStol 200 MCG TABLET 800 MCG RECTAL (20:34)
[2022-07-24] MEDS: IBUPROFEN 600 MG TABLET PO (21:06)
[2022-07-24] MEDS: BENZOCAINE 20% AER SPR (*SP) 56 GM CAN 1 SPRAY TOPICAL (21:40)
[2022-07-24] MEDS: WITCH HAZEL 40 PADS 1 PAD TOPICAL (21:41)
[2022-07-25 00:19] VITALS: BP 156/95; PULSE 88; RESP 18; TEMP 36.4; O2SAT 98
[2022-07-25] MEDS: IBUPROFEN 600 MG TABLET PO (04:52)
[2022-07-25 04:57] VITALS: BP 149/93; PULSE 70; RESP 18; TEMP 36.1; O2SAT 99
[2022-07-25 05:01] LABS: Hematocrit 34.4 % (37.0-47.0); Hemoglobin 11.4 g/dL (12.0-15.0)
[2022-07-25] MEDS: ACETAMINOPHEN 325 MG TABLET 650 MG PO (05:47)
[2022-07-25 07:46] LABS: Rapid Plasma Reagin Non-Reactive (NonReactive)
--- NOTE | 2022-07-25 08:09 | WPDANLDPN2 ---
Anes-Prog Note L&D Date/Time: 07/25/22 08:09 Neuro status: Neuro function grossly intact. Cardiovascular status: normal Respiratory status: normal Airway patency: baseline Mental status: baseline Post-Op hydration status: normal Vital Signs: Last Vital Signs Temp 36.1 C L 07/25/22 04:57 Pulse 70 07/25/22 04:57 Resp 18 07/25/22 04:57 BP 149/93 H 07/25/22 04:57 Pulse Ox 99 07/25/22 04:57 O2 Del Method Room Air 07/25/22 00:19 Pain score (VAS): 0 I/O: Intake & Output 07/24/22 07/25/22 07/25/22 23:59 07:59 15:59 Intake Total 1000 400 Output Total 1058 600 Balance -58 -200 Post-procedural complaints: none Patient feedback: Patient satisfied with anesthetic care.
--- NOTE | 2022-07-25 08:11 | WPDANLDPN2 ---
Anes-Prog Note L&D Date/Time: 07/25/22 08:11 Neuro status: Neuro function grossly intact. Cardiovascular status: normal Respiratory status: normal Airway patency: baseline Mental status: baseline Post-Op hydration status: normal Vital Signs: Last Vital Signs Temp 36.1 C L 07/25/22 04:57 Pulse 70 07/25/22 04:57 Resp 18 07/25/22 04:57 BP 149/93 H 07/25/22 04:57 Pulse Ox 99 07/25/22 04:57 O2 Del Method Room Air 07/25/22 00:19 Pain score (VAS): 0 I/O: Intake & Output 07/24/22 07/25/22 07/25/22 23:59 07:59 15:59 Intake Total 1000 400 Output Total 1058 600 Balance -58 -200 Post-procedural complaints: none Patient feedback: Patient satisfied with anesthetic care.
--- NOTE | 2022-07-25 08:11 | PM.OBPNVD ---
OB - PN: Subj Subjective Date/time seen: 07/25/22 0735 Interval history: PPD 1 From . Up to BR. Denies passing large clots or heavy bleeding. Denies BAILON, visual changes, or RUQ pain. Patient comments: no complaints and pain well controlled baby status: nursing well feeding status: exclusively breast feeding OB - PN: Obj Data Labs 07/25/22 04:45 07/24/22 11:49 Labs: Laboratory Results - last 24 hr 07/24/22 07/24/22 07/25/22 05:52 11:49 04:45 Hgb 11.4 L Hct 34.4 L Plt Count 156 MPV 12.8 H Sodium 132 L Potassium 3.9 Chloride 103 Carbon Dioxide 20 L Anion Gap 9 BUN 10 Creatinine 0.50 L Estim Creat Clear Calc Not Reportable Estimated GFR > 60 Glucose 105 Uric Acid 5.2 Calcium 8.7 Total Bilirubin 0.4 AST 20 ALT 15 Alkaline Phosphatase 127 H Total Protein 6.0 L Albumin 3.5 RPR Non-reactive OB - PN A/P Plan day: 1 Plan: routine care Comments: Start Procardia XL 30mg due to BPs. Discussed with pt. Plan to check BP q 4hours while awake today. Time Spent With Patient Time: Total time spent is greater than 50% in coordination of care (as documented) at patient's floor/unit and/or counseling patient: Review of Systems Review of Systems: All systems reviewed & are unremarkable except as noted in HPI and below Exam Narrative: Alert and oriented. Mood is pleasant and cooperative. Urinating without difficulty. Denies passing any large clots. Perineum with minimal edema. Fundus firm and below umbilicus. Const: General: cooperative, healthy appearing, no acute distress and alert Orientation/consciousness: patient oriented x3 Limitations: no limitations Resp: Effort & Inspection: normal respiratory effort Auscultation: clear to auscultation bilaterally Cardio: Rate: regular rate GI: Inspection: normal to inspection Neuro: General: patient oriented x3 Extrem: General: normal to inspection Right lower extremity: edema Details: pitting and 1+ Left lower extremity: edema (1+) Details: pitting Psych: Appearance: grossly normal Mental Status: mental status grossly normal Affect: normal affect Thought process: Normal thought process present
[2022-07-25 08:39] VITALS: BP 143/88; PULSE 77; RESP 14; O2SAT 99
[2022-07-25] MEDS: NIFEdipine 30 MG TAB.ER.24 PO (09:41)
[2022-07-25 12:24] VITALS: BP 143/89; PULSE 97; RESP 16; TEMP 36.4; O2SAT 98
[2022-07-25 17:20] VITALS: BP 136/89; PULSE 95; RESP 18; TEMP 36.7; O2SAT 97
--- NOTE | 2022-07-25 18:30 | PC.NURSE ---
Patient left on therapeutic pass to see at [facility].
--- NOTE | 2022-07-25 19:45 | PC.NURSE ---
1830 Pt went on a 4-6 hour therapeutic pass to visit [facility]. Her Mom was driving her.
--- NOTE | 2022-07-25 22:24 | PC.NURSE ---
Patient arrived back to room from therapeutic pass.
--- NOTE | 2022-07-26 00:14 | PC.NURSE ---
Patient returned to room from therapeutic pass via wheelchair.
[2022-07-26 00:44] VITALS: BP 148/98; PULSE 94; RESP 18; TEMP 36.4; O2SAT 100
[2022-07-26 04:30] VITALS: BP 130/77; PULSE 81; RESP 18; O2SAT 100
[2022-07-26 07:14] VITALS: BP 131/79; PULSE 79; RESP 16; TEMP 36.4; O2SAT 99
--- NOTE | 2022-07-26 08:12 | P.PNOB_ITS ---
OB - PN: Subj Subjective Date/time seen: 07/26/22 0750 Interval history: PPD 2 From . Up to BR. Denies passing large clots or heavy bleeding. Denies BAILON, visual changes, or RUQ pain. Went to visit baby at [facility] yesterday evening. Reports increased BLE edema when she returned but that it has diminished now. Patient comments: no complaints and pain well controlled baby status: NICU feeding status: pumping and storing Narrative: Discussed pumping. Discussed supply and demand. Pt aware and is ok with formula and pumping/ combination. OB - PN: Obj Data Labs 07/25/22 04:45 07/24/22 11:49 OB - PN A/P Assessment and Plan (1) Pre-eclampsia affecting childbirth: Code(s): O14.94 - Unspecified pre-eclampsia, complicating childbirth Status: Acute Assessment and Plan: plan to continue Procardia XL 30mg q day. For BP check BID and 1 week in the office. Instructed to report any BPs greater than 160 systolic or 110 diastolic. Plan day: 2 Plan: routine care, discharge home, follow up 6 weeks and other (BP check in one week) Time Spent With Patient Time: Total time spent is greater than 50% in coordination of care (as documented) at patient's floor/unit and/or counseling patient: Review of Systems Review of Systems: All systems reviewed & are unremarkable except as noted in HPI and below Exam Narrative: Alert and oriented. Mood is pleasant and cooperative. Urinating without difficulty. Denies passing any large clots. Perineum with minimal edema. Fundus firm and below umbilicus. Const: General: cooperative, healthy appearing, no acute distress and alert Orientation/consciousness: patient oriented x3 Limitations: no limitations Resp: Effort & Inspection: normal respiratory effort Auscultation: clear to auscultation bilaterally Cardio: Rate: regular rate GI: Inspection: normal to inspection Neuro: General: patient oriented x3 Extrem: General: normal to inspection Psych: Appearance: grossly normal Mental Status: mental status grossly normal Affect: normal affect Thought process: Normal thought process present
--- NOTE | 2022-07-26 08:45 | PC.NURSE ---
On 07/26/22, the student, Kamilla Nation, provided care and completed [facility] documentation on this patient. I have reviewed the student's documentation and agree with the findings.
[2022-07-26] MEDS: NIFEdipine 30 MG TAB.ER.24 PO (09:00)
[2022-07-26 12:40] VITALS: BP 127/86; PULSE 89; RESP 16; TEMP 36.4; O2SAT 100
--- NOTE | 2022-07-26 15:44 | PC.NURSE ---
[id number] Breast pump provided due to separation from her infant. Instructions given on cleaning, care, usage, that there should be no pain, pumping schedule for milk production, collection, and storage of human milk. Mother is encouraged to record pumping schedule. Patient was assessed for correct placement, flange size, to pump for comfort and nipple stretching/stimulation for adequate milk production every 3 hours (8 times in 24 hours) 1-2 times at night. Mother has a pump at home and states she did not have the energy to pump in the last 24 hours related to the stress of infant being transferred. We discussed how to build, protect, maintain the milk supply with healthy expectations. Mother was encouraged to consistently pump and reach out to outpatient in the NICU at [facility]. Reinforced understanding of milk production, transition of milk, signs of adequate intake, transition of stool, prevention/relief of engorgement, community resources, and when to call a provider using the resource of the mom and baby guide and a business card for additional contact information along with [facility] human milk storage quidelines attached. Mother voiced understanding of the education shared.
--- NOTE | 2022-07-26 20:07 | PC.NURSE ---
1418 Spoke to Arabella MASTERSON asked if pt could not go to the FU visit here at the [facility] because she was not sure about infants D/C from [facility]? She Stated Yes, but she must take her B/P 2 times per day and call if they are elevated to the amount discribed on the D/C papers. The pt V/U'd.
--- NOTE | 2022-07-26 20:11 | PC.NURSE ---
1300 Patient viewed the discharge video Mother & Baby Care, The First Two Weeks . Patient was given the opportunity and encouraged to ask questions. Patient verbalized understanding of information shared and has been given the mother/baby guide for home reference.
== END 2022-07-26 14:27 | disposition home or self-care (01) | DRG 807 ==
LOC: ANHLDR 19:05 → ANHOB2 22:20
PROVIDERS: Advanced Practice Midwife; Admitting Provider Obstetrics & Gynecology Gynecology; Visit Provider Obstetrics & Gynecology Gynecology
DX: O14.94 Unspecified pre-eclampsia, complicating childbirth (principal); Z37.0 Single live birth; Z3A.37 37 weeks gestation of pregnancy; O99.824 Streptococcus B carrier state complicating childbirth; O77.0 Labor and delivery complicated by meconium in amniotic fluid; O69.81X0 Labor and delivery complicated by cord around neck, without compression, not applicable or unspecified; O70.1 Second degree perineal laceration during delivery
CPT/HCPCS: 36415; 80053; 84550; 85014; 85018; 85025; 85049; 86592; 86850; 86900; 86901; 88307; A9270; J0290; J2590; J2795; J7120

== ENCOUNTER → 2022-10-25 15:12 | Outpatient (CLI) | payer OTHER, SELFPAY ==
--- NOTE | ~2022-10-25 | US_ITS ---
EXAMINATION: US pelvic complete DATE: 10/25/2022 15:29 INDICATION: missing iud string , persistent vaginal bleeding. TECHNIQUE: Multiple transabdominal sonographic images of the pelvis were obtained. COMPARISON: None. FINDINGS: Uterus: 8.4 x 3.7 x 5.5 cm. IUD, in good position. Endometrial complex measures 4 mm. Right Ovary: 3.2 x 2.9 x 3.8 cm. Vascular flow is present. No adnexal mass. Left Ovary: 3.8 x 2.3 x 3.0 cm. Vascular flow is present. No adnexal mass There is no free fluid in the pelvis. IMPRESSION: Normal pelvic sonogram findings. IUD appears to be in good position. Reviewed, dictated and finalized at location K.
== END ==
PROVIDERS: PCP Obstetrics & Gynecology Gynecology; Visit Provider Obstetrics & Gynecology Gynecology
DX: T83.32XA Displacement of intrauterine contraceptive device, initial encounter (principal)
CPT/HCPCS: 76856